=== PATIENT | male | born 2000 | race Caucasian/White ===

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

== ENCOUNTER → 2022-01-03 | Day surgery (SDC) | payer BC ==
[2021-12-31 13:38] VITALS: BP 112/65
[~2022-01-03] VITALS: Ht 187.9 cm; Wt 67.1 kg
[~2022-01-03] MED LIST: COLACE100 MG PO; ONDANSETRON HYDR4 M1 PO; PERCOCET 5-3251 EACH PO
[2022-01-03 10:48] VITALS: BP 134/82
[2022-01-03 11:03] VITALS: BP 135/79
[2022-01-03 11:18] VITALS: BP 121/69
[2022-01-03 11:33] VITALS: BP 111/54
[2022-01-03 11:48] VITALS: BP 108/52
== END | disposition home or self-care (01) ==
LOC: SDC 12-30 13:15
PROVIDERS: ATTEND Surgery
DX: K40.90 Unilateral inguinal hernia, without obstruction or gangrene, not specified as recurrent (principal)